=== PATIENT | male | born 1975 | race Caucasian/White ===

== ENCOUNTER 2023-11-10 08:14 | Outpatient (RCR) | payer OTHER, SELFPAY | END 2023-11-10 23:59 | disposition home or self-care (01) | LOC: RPT 08:14 | PROVIDERS: ATTENDING PHYSICIAN Physical Medicine & Rehabilitation; FAMILY PHYSICIAN Family Medicine | DX: M54.12 Radiculopathy, cervical region (principal); Z73.6 Limitation of activities due to disability; M79.622 Pain in left upper arm; M79.621 Pain in right upper arm | CPT/HCPCS: 97110; 97162 ==

== ENCOUNTER 2023-12-08 06:29 | Outpatient (RCR) | payer OTHER, SELFPAY | END 2023-12-08 10:10 | disposition home or self-care (01) | LOC: RPT 06:29 | PROVIDERS: ATTENDING PHYSICIAN Physical Medicine & Rehabilitation; FAMILY PHYSICIAN Family Medicine | DX: M54.12 Radiculopathy, cervical region (principal); Z73.6 Limitation of activities due to disability; M79.602 Pain in left arm; M79.601 Pain in right arm | CPT/HCPCS: 97010; 97110; 97140 ==